=== PATIENT | female | born 1955 | race Caucasian/White ===

== ENCOUNTER → 2022-02-02 | Outpatient (CLI) | payer OTHER ==
--- NOTE | 2022-02-02 12:59 | Diagnostic Imaging Report ---
INDICATION: Right breast density. Patient presents for additional views. COMPARISON: Outside screening study from 01/20/2022. TECHNIQUE: Unilateral right 2D and 3D diagnostic mammography was performed with CAD. This included spot compression CC and ML views as well as conventional 90 degree lateral views. FINDINGS: Additional views show some persistent density in the upper outer right breast approximately 10 to 11 cm from the nipple. A discrete mass is not seen. This may represent fibroglandular tissue. No other abnormalities are seen. IMPRESSION: Additional views show some mild persistent density in the upper outer right breast 10 to 11 cm from the nipple. This most likely represents asymmetric fibroglandular tissue. Even so, further evaluation with ultrasound of this area is recommended and will be performed today. ACR BI-RADS Category 0: Incomplete. (Needs additional imaging evaluation). Result letter will be mailed to the patient. Note: At least 10% of breast cancer is not imaged by mammography. Dictated by: Dictated on workstation # [id number]
--- NOTE | 2022-02-02 14:27 | Diagnostic Imaging Report ---
INDICATION: Right breast asymmetry. COMPARISON: Correlation is made with the diagnostic mammogram from earlier this same day and outside screening mammogram from 01/20/2022. FINDINGS: Sonographic interrogation of the upper outer right breast was performed. There is a normal-sized lymph node in the outer right breast measuring approximately 9 mm x 6 mm x 8 mm. This may partially account for the density noted in the upper outer right breast on mammography. No concerning sonographic finding is identified. IMPRESSION: Benign lymph node at the 9 o'clock location of the right breast 10-11 cm from the nipple. The patient may return to routine annual screening mammography. ACR BI-RADS Category 2: Benign findings. Dictated by: Dictated on workstation # [id number]
== END ==
LOC: RAD 12:18
PROVIDERS: ATTEND Internal Medicine
DX: R59.0 Localized enlarged lymph nodes (principal)
CPT/HCPCS: 76642; 77065; G0279

== ENCOUNTER → 2023-02-08 | Outpatient (CLI) | payer MEDICARE, OTHER ==
--- NOTE | 2023-02-08 12:52 | Diagnostic Imaging Report ---
INDICATION: Routine screening. COMPARISON: 01/20/2022 and 02/27/2013. TECHNIQUE: 2D and 3D bilateral screening mammography was performed with CAD. FINDINGS: Scattered fibroglandular densities are identified bilaterally. Parenchymal nodularity in the upper outer right breast is stable. The left breast is stable. No dominant mass or malignant-appearing microcalcifications are seen. The axillae are unremarkable. IMPRESSION: No mammographic features suspicious for malignancy are identified. ACR BI-RADS Category 2: Benign findings. Result letter will be mailed to the patient. Note: At least 10% of breast cancer is not imaged by mammography. Dictated by: Dictated on workstation # [id number]
== END ==
LOC: RAD 09:29
PROVIDERS: ATTEND Internal Medicine
DX: Z12.31 Encounter for screening mammogram for malignant neoplasm of breast (principal)
CPT/HCPCS: 77063; 77067